=== PATIENT | female | born 1965 | race Caucasian/White ===

== ENCOUNTER 2017-07-31 12:45 | Outpatient (RCR) | payer OTHER, MEDICAID, SELFPAY | END 2017-08-14 23:59 | LOC: NS 12:45 | PROVIDERS: Family Provider Internal Medicine; PCP Internal Medicine; Visit Provider Internal Medicine | DX: E11.9 Type 2 diabetes mellitus without complications (principal); Z68.42 Body mass index [BMI] 45.0-49.9, adult; Z71.3 Dietary counseling and surveillance | CPT/HCPCS: 97802 ==

== ENCOUNTER 2017-08-21 12:48 | Outpatient (RCR) | payer OTHER, MEDICAID, SELFPAY | END 2017-08-21 12:49 | LOC: NS 12:48 | PROVIDERS: Family Provider Internal Medicine; PCP Internal Medicine; Visit Provider Internal Medicine | DX: E11.9 Type 2 diabetes mellitus without complications (principal); E66.9 Obesity, unspecified; Z68.42 Body mass index [BMI] 45.0-49.9, adult; Z71.3 Dietary counseling and surveillance | CPT/HCPCS: 97803 ==

== ENCOUNTER → 2018-01-13 15:44 | Outpatient (CLI) | payer OTHER, MEDICAID, SELFPAY ==
[2018-01-13 17:39] LABS: Erythrocyte Sedimentation Rate 26 mm/hr (0-30)
[2018-01-13 18:25] LABS: HIV - WCH Non-Reactive (Nonreactive); Vitamin B12 1198 pg/mL (211-911)
[2018-01-13 18:54] LABS: Rheumatoid Factor < 10.0 IU/mL (<15); Thyroid Stim Hormone (TSH) 1.43 uIU/mL (0.358-3.74)
[2018-01-15 14:07] LABS: RNP Ab <0.2 AI (0.0-0.9); Smith Ab <0.2 AI (0.0-0.9)
[2018-01-15 16:10] LABS: PROEL- A/G Ratio 1.1 (0.7-1.7); PROEL- Albumin 3.4 g/dL (2.9-4.4); PROEL- Alpha-1 Globulin 0.2 g/dL (0.0-0.4); PROEL- Beta Globulin 1.1 g/dL (0.7-1.3); PROEL- Gamma Globulin 0.8 g/dL (0.4-1.8); PROEL- Globulin, Total 3.2 g/dL (2.2-3.9); PROEL- TOTAL PROTEIN 6.6 g/dL (6.0-8.5)
[2018-01-16 17:05] LABS: ANTINUCLEAR ANTIBODIES DIRECT Negative (Negative)
[2018-01-16 17:09] LABS: Hep C Antibodies 0.1 s/co ratio (0.0-0.9)
== END ==
PROVIDERS: Family Provider Internal Medicine; PCP Internal Medicine; Visit Provider Psychiatry & Neurology Neurology
DX: G62.9 Polyneuropathy, unspecified (principal); R20.2 Paresthesia of skin; R53.83 Other fatigue
CPT/HCPCS: 36415; 82607; 82746; 84165; 84443; 85652; 86038; 86235; 86431; 86703; 86803

== ENCOUNTER → 2018-03-17 10:28 | Outpatient (CLI) | payer OTHER, MEDICAID, SELFPAY ==
[2018-03-17 12:36] LABS: ALB/GLOB Ratio 0.9 RATIO (0.9-2.4); AST(SGOT) 28 U/L (15-37); Alanine Aminotransfer ALT/SGPT 52 U/L (13-56); Albumin, Serum 3.6 g/dL (3.2-5.0); Alkaline Phosphatase 99 U/L (45-117); Anion Gap 9 (5-15); BUN 13 mg/dL (7-18); BUN/Creat Ratio 15.8 RATIO (10-20); Calcium,Total 8.9 mg/dL (8.5-10.1); Chloride 105 mmol/L (98-107); Cholesterol 162 mg/dL (200); Creatinine, Serum 0.82 mg/dL (0.55-1.02); EST Glomerular Filtration Rate 78 mL/min (>60); Est Glom Filt Rate - Afr Amer 94 mL/min (>60); Globulin 4.2 g/dL (2.2-4.2); Glucose 90 mg/dL (74-106); High Density Lipoprotein 39 mg/dL; Potassium 4.2 mmol/L (3.5-5.1); Protein, Total 7.8 g/dL (6.4-8.2); Sodium Level 139 mmol/L (136-145); Triglycerides 180 mg/dL; Very Low Density Lipoprotein 36 mg/dL (5-40)
[2018-03-17 12:42] LABS: Hemoglobin A1c 6.4 % (4.2-6.3)
[2018-03-17 12:45] LABS: Vitamin D,25 Hydroxy 19.6 ng/mL (29.95-100.01)
== END ==
PROVIDERS: Family Provider Family Medicine; PCP Family Medicine; Referring Provider Nurse Practitioner Family; Visit Provider Nurse Practitioner Family
DX: E11.9 Type 2 diabetes mellitus without complications (principal); E55.9 Vitamin D deficiency, unspecified
CPT/HCPCS: 36415; 80053; 80061; 82306; 83036

== ENCOUNTER → 2018-09-11 08:34 | Outpatient (CLI) | payer OTHER, MEDICAID, SELFPAY ==
[2018-09-11 10:03] LABS: ALB/GLOB Ratio 0.8 RATIO (0.9-2.4); AST(SGOT) 38 U/L (15-37); Alanine Aminotransfer ALT/SGPT 52 U/L (13-56); Albumin, Serum 3.3 g/dL (3.2-5.0); Alkaline Phosphatase 100 U/L (45-117); Anion Gap 9 (5-15); BUN 11 mg/dL (7-18); BUN/Creat Ratio 13.4 RATIO (10-20); Calcium,Total 8.6 mg/dL (8.5-10.1); Chloride 110 mmol/L (98-107); Cholesterol 204 mg/dL (200); Creatinine, Serum 0.82 mg/dL (0.55-1.02); EST Glomerular Filtration Rate 78 mL/min (>60); Est Glom Filt Rate - Afr Amer 94 mL/min (>60); Globulin 4.2 g/dL (2.2-4.2); Glucose 135 mg/dL (74-106); High Density Lipoprotein 38 mg/dL; Potassium 4.2 mmol/L (3.5-5.1); Protein, Total 7.5 g/dL (6.4-8.2); Sodium Level 138 mmol/L (136-145); Triglycerides 190 mg/dL; Very Low Density Lipoprotein 38 mg/dL (5-40)
[2018-09-11 10:07] LABS: Vitamin D,25 Hydroxy 31.7 ng/mL (29.95-100.01)
[2018-09-11 10:09] LABS: Hemoglobin A1c 6.8 % (4.2-6.3)
[2018-09-12 05:07] LABS: HEPATITIS B SURFACE AG Negative (Negative); Hepatitis A AB, Total Negative (Negative); Hepatitis A IgM Antibody Negative (Negative); Hepatitis B Core AB IgM Negative (Negative); Hepatitis B Core Ab Total Negative (Negative); Hepatitis C Ab <0.1 s/co ratio (0.0-0.9)
[2018-09-12 14:30] LABS: Hep B Surface Antibodies Reactive (.)
== END ==
PROVIDERS: Family Provider Family Medicine; PCP Family Medicine; Referring Provider Nurse Practitioner Family; Visit Provider Nurse Practitioner Family
DX: E11.9 Type 2 diabetes mellitus without complications (principal); R74.8 Abnormal levels of other serum enzymes; E55.9 Vitamin D deficiency, unspecified
CPT/HCPCS: 36415; 80053; 80061; 82306; 83036; 86704; 86705; 86706; 86708; 86709; 86803; 87340

== ENCOUNTER → 2019-02-26 13:07 | Outpatient (CLI) | payer MEDICAID, SELFPAY ==
[2019-02-26 13:03] VITALS: BMI 48.3
--- NOTE | 2019-02-26 13:11 | RAD_ITS ---
STUDY: X-RAY - PELVIS AND BILATERAL HIPS REASON FOR EXAM: Chronic pain. TECHNIQUE: AP view of the pelvis.? 2 views of the right hip, and 2 views of the left hip were obtained. COMPARISON: None. FINDINGS: There are a few pelvic phleboliths. Normal bilateral iliac wings, sacroiliac joints and visualized sacrum. Normal bilateral superior and inferior pubic rami. There are very mild degenerative changes of the pubic symphysis. Normal bilateral ischial tuberosities. Normal visualized right femoral head. Normal right acetabulum. Normal right hip joint. Normal visualized left femoral head. Normal left acetabulum. Normal left hip joint. RAD/Hips B/L min 2 views w/ Pelvis IMPRESSION: Very mild degenerative changes of the pubic symphysis. Otherwise, unremarkable x-ray examination of the pelvis and bilateral hips. Electronically Signed: Yovany bAdul MD at 13:53 EDT Tel , Service support ,
--- NOTE | 2019-02-26 13:11 | RAD_ITS ---
STUDY: X-RAY - RIGHT KNEE REASON FOR EXAM: Chronic pain. TECHNIQUE: 4 view(s) of the knee. COMPARISON: None. FINDINGS: Normal visualized distal femur. Normal visualized proximal tibia and fibula. Normal proximal tibiofibular articulation. Normal medial femorotibial compartment. Normal lateral femorotibial compartment. Normal patellofemoral articulation. The soft tissue structures are unremarkable. RAD/Knee 4 or More Views IMPRESSION: Normal x-ray examination of the right knee. Electronically Signed: Yovany Abdul MD at 14:21 EDT Tel , Service support ,
--- NOTE | 2019-02-26 13:11 | RAD_ITS ---
STUDY: X-RAY - LEFT KNEE REASON FOR EXAM: Chronic pain. TECHNIQUE: 4 view(s) of the knee. COMPARISON: None. FINDINGS: Normal visualized distal femur. Normal visualized proximal tibia and fibula. Normal proximal tibiofibular articulation. There is mild space narrowing of the medial femorotibial compartment. Normal lateral femorotibial compartment. Normal patellofemoral articulation. The soft tissue structures are unremarkable. RAD/Knee 4 or More Views IMPRESSION: Mild arthrosis of the medial femorotibial compartment. Electronically Signed: Yovany Abdul MD at 14:23 EDT Tel , Service support ,
== END ==
PROVIDERS: Family Provider Family Medicine; PCP Family Medicine; Referring Provider Orthopaedic Surgery; Visit Provider Orthopaedic Surgery
DX: M25.551 Pain in right hip (principal); M25.552 Pain in left hip; M25.561 Pain in right knee; M25.562 Pain in left knee
CPT/HCPCS: 73521; 73564

== ENCOUNTER → 2020-07-12 08:43 | Outpatient (CLI) | payer MEDICAID, SELFPAY ==
[2019-02-26 13:03] VITALS: BMI 48.3
--- NOTE | 2020-07-12 08:46 | VDLE_ITS ---
Reason For Study: varicose veins RIGHT LEFT CFV is compressible, spontaneous, phasic, FV is compressible, spontaneous, phasic, competent and demonstrates normal competent and demonstrates normal augmentation. augmentation. FV is compressible, spontaneous, phasic, POP V is compressible, spontaneous, phasic, competent and demonstrates normal competent and demonstrates normal augmentation. augmentation. T/P Trunk is compressible. T/P Trunk is compressible. PTV is compressible. PTV is compressible. RT PerV is compressible. LT PerV is compressible. Pop V is dilated and noncompressible with CFV is partially compressible with decreased flow. flow. Gastroc V are dilated and noncompressible. GSV is occluded. Extension into the CFV is Varicose veins above and below the knee are noted. dilated and noncompressible. GSV is occluded. Procedure This is a venous duplex using B-mode, color flow and spectral Doppler. Exam performed in department. The exam was diagnostic. A preliminary report was called and/or faxed to Dr. Ragland and Suzan at Dr. Ragland's office. Interpretation Summary Bilateral DVT with some extension into popliteal on the right and into the CFV on the left. Bilateral GSV occluded and varicose veins occluded. Ordering Physician: Kameron Ragland Performed By: Bright Zuniga, RVT
== END ==
PROVIDERS: PCP Family Medicine; Visit Provider Surgery Vascular Surgery
DX: I83.893 Varicose veins of bilateral lower extremities with other complications (principal)
CPT/HCPCS: 93970

== ENCOUNTER → 2020-07-26 08:33 | Outpatient (CLI) | payer MEDICAID, SELFPAY ==
[2019-02-26 13:03] VITALS: BMI 48.3
--- NOTE | 2020-07-26 08:35 | VDLE_ITS ---
Reason For Study: pain and swelling RIGHT LEFT CFV is compressible, spontaneous, phasic, FV is compressible, spontaneous, phasic, competent and demonstrates normal competent and demonstrates normal augmentation. augmentation. FV is compressible, spontaneous, phasic, POP V is compressible, spontaneous, phasic, competent and demonstrates normal competent and demonstrates normal augmentation. augmentation. T/P Trunk is compressible. T/P Trunk is compressible. PTV is compressible. PTV is compressible. RT PerV is compressible. LT PerV is compressible. Pop V is partially compressible with CFV is partially compressible with decreased flow. Mild improvement from previous study flow. done 07/12/20. GSV is occluded. Extension into the CFV is Gastroc V are dilated and noncompressible. noted. Varicose veins above and below the knee are dilated and noncompressible. GSV is occluded. Procedure This is a venous duplex using B-mode, color flow and spectral Doppler. Exam performed in department. The exam was diagnostic. A preliminary report was called and/or faxed to Dr. Mckinney office. Interpretation Summary Right popliteal DVT improved and residual calf DVT. Some extension into CFV on left. Ordering Physician: Kameron Ragland Performed By: Bright Zuniga RVT
== END ==
PROVIDERS: PCP Family Medicine; Referring Provider Surgery Vascular Surgery; Visit Provider Surgery Vascular Surgery
DX: I82.431 Acute embolism and thrombosis of right popliteal vein (principal); I82.4Z1 Acute embolism and thrombosis of unspecified deep veins of right distal lower extremity; I83.893 Varicose veins of bilateral lower extremities with other complications; M79.89 Other specified soft tissue disorders; M79.606 Pain in leg, unspecified; I47.1 Supraventricular tachycardia; F17.200 Nicotine dependence, unspecified, uncomplicated
CPT/HCPCS: 93970

== ENCOUNTER 2021-10-07 23:28 | Emergency (ER) | payer MEDICAID, SELFPAY ==
[2021-10-07 23:29] VITALS: BP 185/95; PULSE 76; RESP 16; TEMP 36.6; O2SAT 97; BMI 47.5
--- NOTE | 2021-10-07 23:56 | EX.ED.DYSGE1 ---
HPI History of Present Illness Chief Complaint: Foreign Body Narrative Narrative: Patient presents with foreign body sensation in her throat/neck. She states she was eating walnuts 24 hours ago and felt to get stuck. However, she was able to continue to eat and drink. She now states that an hour ago she is unable to eat and that her voice is hoarse. She feels that it is stuck. She saw the warehouse lead Dr. Estevez who told her that she needed to do strengthening exercises for her neck muscles because of her difficulty swallowing because she is having throat spasms. She states she is afraid to eat and that when she tilts her head, she can feel it move. She states this is not chest irritation that something actually feels stuck in her throat. PFSH PFS Medical History Depression Diabetes HTN (hypertension) Hyperlipidemia Home Medications ivcdmbmmhlaa-Wu-qvap-minerals 1 ea PO DAILY 03/19/14 [History Last Taken Unknown] cholecalciferol (vitamin D3) 25 mcg (1,000 unit) tablet 1,000 unit PO ONCE 06/05/17 [History Last Taken Unknown] aspirin [Aspir-81] 81 mg PO DAILY 10/07/21 [History Last Taken Unknown] Allergy/AdvReac Type Severity Reaction Status Date / Time empagliflozin Allergy Other Verified 10/07/21 23:57 [From Jardiance] evolocumab Allergy Nausea Verified 10/07/21 23:58 [From Repatha Pushtronex] fluoxetine [From Prozac] Allergy Other Verified 10/07/21 23:58 gabapentin Allergy Other Verified 10/08/21 00:00 hydrochlorothiazide Allergy Nausea Verified 10/08/21 00:00 lisinopril Allergy Other Verified 10/08/21 00:00 losartan Allergy Other Verified 10/08/21 00:01 omeprazole Allergy Other Verified 10/08/21 00:03 pantoprazole Allergy Bleeding Verified 10/08/21 00:03 Bzqxdfu-ONM-NeC Reductase Allergy Other Verified 10/07/21 23:59 Inhibitor Sulfa (Sulfonamide Allergy Other Verified 10/07/21 23:33 Antibiotics) metformin AdvReac Other Verified 10/08/21 00:02 Family History Mother Breast cancer Father Diabetes Heart disease Hypertension CAD (coronary artery disease) Daughter Seizures Kidney disease Thyroid disorder Surgical History H/O colonoscopy History of bilateral oophorectomy History of hysterectomy History of LEEP (loop electrosurgical excision procedure) of cervix complicating Status post panniculectomy surgical history novasure Social History Smoking Status: Current every day smoker tobacco type: cigarettes alcohol intake: never substance use type: does not use ROS ROS ED ROS Narrative Constitutional: No fever, no chills. HEENT: No sore throat. No neck pain. No loss of vision. No rhinorrhea. Foreign body sensation in throat. Cardiovascular: No chest pain. No palpitations. No pedal edema. Respiratory: No cough, no shortness of breath. Abdominal: No abdominal pain. No nausea. No vomiting. Genitourinary: No dysuria. No hematuria. Musculoskeletal: No myalgias. No arthralgias. Neurologic: No headaches. No dizziness. No lightheadedness. Skin: No rash. No change in color. Psychiatric: No depression. No anxiety. EXAM Physical Exam Narrative Exam Narrative: Afebrile. Vital signs noted. HEENT: Normocephalic. Atraumatic. PERRL, EOMI. Neck soft and supple. No point tenderness or step off. Airway patent. Hoarse voice. No drooling or trismus. Handling secretions well. Cardiovascular: Regular rate and rhythm. No murmurs, rubs, or gallops appreciated. Respiratory: No tachypnea. Lungs clear to auscultation bilaterally. Gastrointestinal: Abdomen soft, nontender, with normoactive bowel sounds. No rebound or guarding. Neurological: Awake. Alert. Nonfocal, nonlateralizing. Skin: No rash. Normal color. No pallor. Musculoskeletal: No pedal edema. Full range of motion extremities. Const Vital Signs: 10/07/21 23:29 10/07/21 23:53 10/08/21 01:29 Temperature 97.8 F Temperature Source Temporal Pulse Rate 76 Respiratory Rate 16 18 Respiratory Effort Normal Respiratory Pattern Normal Blood Pressure 185/95 H Blood Pressure Mean 125 Pulse Ox 97 Oxygen Delivery Method Room Air Room Air 10/08/21 02:52 Temperature Temperature Source Pulse Rate 80 Respiratory Rate 17 Respiratory Effort Respiratory Pattern Blood Pressure 168/88 H Blood Pressure Mean Pulse Ox 98 Oxygen Delivery Method MDM MDM MDM Narrative Medical decision making narrative: Pulse ox is 97% on room air. I will obtain CBC and BMP. She was bolused normal saline. CT of the neck will be obtained to look for foreign body. Her CBC shows normal white count of 9.6. Hemoglobin normal at 14.7. Platelet count of 199 and normal. Electrolyte panel is grossly unremarkable. CT of the soft tissue neck with IV contrast shows no acute findings. There is an incidental 1.1 cm thyroid nodule. She was told that she has a thyroid nodule and that she should get an ultrasound by her primary care physician as an outpatient on a nonemergent basis. Patient continued to state that she felt a foreign body sensation in her throat. I attempted multiple times to reassure her that there was no evidence of a foreign body or obstruction. Her voice was not as hoarse intermittently and had returned to normal. She will be given a GI cocktail. She states that she had 1 of those yesterday and that her ENT doctor thought it was more dysphagia that she needed massotherapy. She states that she is trying to get outpatient MRIs. Once again, she is handling her secretions well and there is no evidence of drooling or trismus. She became very anxious and shaky. I was going to give her Vistaril, but she states that she has that at home she was told not to take that because it dries out her throat. She will be given Ativan 1 mg intravenously. At this point in time, with no evidence of obstruction or any acute process, no obstructing foreign body in her throat, I feel she can be discharged safely home with follow-up. Return instructions to the emergency department were reviewed. Disposition is discharged home in stable condition. Lab Data Attestation: I reviewed the patient's lab results. Labs: Laboratory Results - last 24 hr 10/08/21 10/08/21 00:16 00:16 WBC 9.6 RBC 4.92 Hgb 14.7 Hct 43.9 MCV 89.2 MCH 29.9 MCHC 33.5 RDW Std Deviation 40.8 RDW Coeff of Janes 12.4 Plt Count 199 MPV 12.3 H Immature Gran % (Auto) 0.300 Neut % (Auto) 52.8 Lymph % (Auto) 36.7 [place] % (Auto) 7.2 Eos % (Auto) 2.5 Baso % (Auto) 0.5 Absolute Neuts (auto) 5.1 Absolute Lymphs (auto) 3.51 Nucleated RBC % 0 Sodium 139 Potassium 3.7 Chloride 106 Carbon Dioxide 25.0 Anion Gap 8 BUN 11 Creatinine 0.92 Estim Creat Clear Calc 62.90 Est GFR (MDRD) Af Amer 82 Est GFR (MDRD) Non-Af 67 BUN/Creatinine Ratio 11.9 Glucose 103 Calcium 9.2 Radiography Diagnostic Testing: Clinical Impression(s) from Imaging Studies Soft Tissue Neck CT 10/08/21 00:00 IMPRESSION: No acute findings. Left internal carotid artery tortuous retropharyngeal course. Incidental 1.1 cm thyroid nodule, follow-up nonemergent ultrasound recommended. Electronically Signed: Astrid Padilla MD at 1:40 EDT Reading Location ID and State: [facility] / [place] Tel , Service support , Discharge Plan Triage Chief Complaint: Foreign Body ED Provider: Chano Peters Dx/Rx/DC Orders Clinical Impression: Foreign body sensation in throat, Anxiety, Dysphagia, Thyroid nodule Instructions: Dysphagia: Exercises, ED Symptoms With Uncertain Cause, ED Dysphagia (Adult) Prescriptions: No Action cholecalciferol (vitamin D3) 1,000 unit tablet 1,000 unit PO ONCE RF: 0 xoterrsjqmgr-Fn-juvz-minerals 1 EACH tablet 1 ea PO DAILY RF: 0 aspirin [Aspir-81] 81 mg Tablet,Delayed Release (Dr/Ec) 81 mg PO DAILY RF: 0 Primary Care Provider: Dallas Hunter Referrals: Dallas Hunter MD [Primary Care Provider] - 2 Days Activity Restrictions/Additional Instructions: You had a CT scan of your throat today which did not show any evidence of obstruction or foreign body. It did show that you have a thyroid nodule. This can be followed up as an outpatient with an ultrasound. Follow-up with your ENT doctor and your leadership intern as soon as possible. Disposition Disposition: Home, Self Care Discharge Date/Time: 10/08/21 02:52
--- NOTE | 2021-10-08 | CT_ITS ---
STUDY: CT SOFT TISSUE NECK WITH CONTRAST REASON FOR EXAM: Female, 56 years old. Foreign Body Sensation RADIATION DOSAGE (If Supplied By Facility): CTDIvol = ( 19.79 ) mGy, DLP = ( 654.51 ) mGycm TECHNIQUE: The patient was scanned in a multi-detector CT scanner. High resolution transaxial imaging was performed following intravenous administration of IV 75mL Isovue-300. Sagittal and coronal images were reconstructed. Individualized dose optimization techniques were used for this CT. COMPARISON: None. FINDINGS: The parapharyngeal and retropharyngeal spaces are unremarkable. The epiglottis is normal. The internal carotid arteries are tortuous, the left ICA courses into the retropharyngeal space. The airway is maintained. No collection or abscess. 1.1 cm low-attenuation nodule in the left lobe of the thyroid gland. Mucosal thickening in the left maxillary sinus. A few prominent lymph nodes in the soft tissues. Degenerative changes in cervical spine. CT/Soft Tissue Neck WITH Contrast IMPRESSION: No acute findings. Left internal carotid artery tortuous retropharyngeal course. Incidental 1.1 cm thyroid nodule, follow-up nonemergent ultrasound recommended. Electronically Signed: Astrid Padilla MD at 1:40 EDT ,
[2021-10-08] MEDS: 0.9% Normal Saline 1,000 ML 999 ML IV (00:18)
[2021-10-08 00:33] LABS: Absolute Lymphocyte Count 3.51 X10^3/uL (0.83-4.51); Absolute Neutrophil Count 5.1 X10^3/uL (2.0-7.7); Basophil# 0.05 X10^3/uL; Basophil% 0.5 % (0-1); Eosinophil# 0.24 X10^3/uL; Eosinophils% 2.5 % (0-5); Hematocrit 43.9 % (37-47); Hemoglobin 14.7 g/dL (12.0-15.0); Lymphocyte # 3.51 X10^3/ul (0.83-4.51); Lymphocyte % 36.7 % (19-41); Mean Corp Hgb Conc 33.5 g/dL (32-36); Mean Corpuscular Hgb 29.9 pg (27.0-32.0); Mean Corpuscular Volume 89.2 fL (81-99); Mean Platelet Vol. 12.3 fl (6.2-12.0); Monocyte# 0.69 X10^3/uL; Monocyte% 7.2 % (0-10); NRBC Flagged by Analyzer 0 % (0-5); Neutrophil # 5.05 X10^3/uL (2.7-7.7); Neutrophil % 52.8 % (47-70); Platelet Count 199 K/mm3 (150-450); RBC Distribution Width CV 12.4 % (11.6-14.6); RBC Distribution Width SD 40.8 fl (35.1-43.9); Red Blood Count 4.92 M/mm3 (4.2-5.4); White Blood Count 9.6 K/mm3 (4.4-11.0)
[2021-10-08 00:49] LABS: Anion Gap 8 (5-15); BUN 11 mg/dL (7-18); BUN/Creat Ratio 11.9 RATIO (10-20); Calcium,Total 9.2 mg/dL (8.5-10.1); Chloride 106 mmol/L (98-107); Creatinine, Serum 0.92 mg/dL (0.55-1.02); EST Glomerular Filtration Rate 67 mL/min (>60); Est Glom Filt Rate - Afr Amer 82 mL/min (>60); Glucose 103 mg/dL (74-106); Potassium 3.7 mmol/L (3.5-5.1); Sodium Level 139 mmol/L (136-145)
[2021-10-08 01:29] VITALS: RESP 18
[2021-10-08] MEDS: Mag Hydrox/Al Hydrox/Simeth 30 ML UDC PO (02:43)
[2021-10-08] MEDS: LORazepam 2 MG/ML Syringe 1 MG IV (02:43)
[2021-10-08 02:52] VITALS: BP 168/88; PULSE 80; RESP 17; O2SAT 98
== END 2021-10-08 02:52 | disposition home or self-care (01) ==
PROVIDERS: Emergency Provider Emergency Medicine; PCP Family Medicine; Visit Provider Emergency Medicine
DX: R09.89 Other specified symptoms and signs involving the circulatory and respiratory systems (principal); F41.9 Anxiety disorder, unspecified; R13.10 Dysphagia, unspecified; E04.1 Nontoxic single thyroid nodule; E11.9 Type 2 diabetes mellitus without complications; I10 Essential (primary) hypertension; E78.5 Hyperlipidemia, unspecified; Z79.82 Long term (current) use of aspirin
CPT/HCPCS: 70491; 80048; 85025; 96361; 96374; 99284; J7030; Q9967; A4216

== ENCOUNTER 2021-10-20 12:54 | Day surgery (SDC) | payer MEDICAID, SELFPAY ==
[2021-10-20] VITALS (7 sets, daily range): BP systolic 112–143; BP diastolic 60–110; PULSE 49–77; RESP 16–18; TEMP 36.1–36.2; O2SAT 96–100; BMI 45.5
--- NOTE | 2021-10-20 | IMM_PTH ---
PATIENT: MAGED LEE LOC: [facility] [place] U#:[id number] AGE/SX: 56/F ROOM: RE10/20/[address]: Dr. Dick Boyle DO : 1965 BED: DIS: 10/20/2021 SPEC #: [id number] RECD: 10/24/21 10:32 STATUS: YAW REHernandez #: [id number] CHARLES: 10/20/21 00:[address]: Dick Boyle DEPT: IMMUNOHISTOCHEMISTRY RECD BY: Kenya Hart ENTERED: 10/24/21 10:33 SP TYPE: IMMUNO OTHR DR: Nela Flor, TACTICAL DECEPTION PLANS OFFICER-C Tissues: Esophagus, NOS Procedures: P53 (initial) KI-67 (add) PHYSICIAN & [place] [id number] SPECIMEN INFORMATION: Tissue Source: Distal esophagus Clinical Info: Dysphagia Specimen Number: [id number] CPT code: 39876, 68010 METHODOLOGY: Deparaffinized sections of prefer/formalin-fixed tissue or PAP/DQ stained slides are incubated with monoclonal/polyclonal antibodies/oligonucleotide probes. Localization is made via biotin free immunoperoxidase method. Appropriate controls are performed and reacted as expected. Results on target cell population are indicated in the following table: RESULTS: ANTIBODY / CLONE RESULT P53 (DO-7) negative Ki-67 (30-9) positive, very low These tests were developed and their performance characteristics determined by [facility]. They may not have been cleared or approved by the U.S. Food and Drug Administration. The FDA has determined that such clearance or approval is not necessary. The above immunohistochemical/dualISH markers are ordered and reviewed by the Pathologist. INTERPRETATION: Distal esophagus, biopsy: Negative for dysplasia. JEWEL:nelia 10/25/2021
--- NOTE | 2021-10-20 13:35 | CT_ITS ---
STUDY: CT SOFT TISSUE NECK WITH CONTRAST REASON FOR EXAM: Female, 56 years old. Dysphagia. Thyroid nodules. RADIATION DOSAGE (If Supplied By Facility): CTDIvol = ( 19.08 ) mGy, DLP = ( 614.99 ) mGycm TECHNIQUE: The patient was scanned in a multi-detector CT scanner. High resolution transaxial imaging was performed following intravenous administration of IV 75mL Isovue-300. Sagittal and coronal images were reconstructed. Individualized dose optimization techniques were used for this CT. COMPARISON: Comparison is made with prior examination dated 10/08/2021. FINDINGS: Normal bilateral parotid glands. Normal bilateral chemical sales representative spaces. Normal bilateral parapharyngeal spaces. Normal bilateral carotid spaces. Normal bilateral sublingual and submandibular glands and spaces. Normal visualized nasopharynx. Normal retropharyngeal space. Normal perivertebral space. Normal visualized bilateral faucial tonsils. The visualized tongue, tongue base and oropharynx are normal. There are minimally enlarged lymph nodes of the neck, with preservation of normal tanvir architecture, consistent with a reactive lymph hyperplasia. There is no demonstrated solid or cystic mass lesion. There is no abnormal contrast enhancement. Normal epiglottis, bilateral vallecula and hypopharynx. The pre-epiglottic and paraglottic adipose spaces are normal. Normal visualized bilateral piriform sinuses, aryepiglottic folds, vocal cords, and arytenoid-cricoid articulations. Normal subglottic trachea. Stable 1.1 cm hypodense nodule in the left lobe of the thyroid. Normal visualized pulmonary apices. Partial opacification of the inferior aspect of the left maxillary sinus. Normal visualized cervical spine. CT/Soft Tissue Neck WITH Contrast IMPRESSION: Stable 1.1 cm hypodense nodule in the left lobe of the thyroid. Partial opacification along the inferior aspect of the left maxillary sinus. Electronically Signed: Jamal Uribe MD at 15:05 EDT ,
--- NOTE | 2021-10-20 13:37 | EDS_ITS ---
HPI History of Present Illness Chief Complaint: Other, Pain/Inj Detail of Chief Complaint: dysphagia Informant: patient Onset/Context/Timing Onset: Weeks (several) Context: Gradual Onset Timing: Continuous Quality: can't swallow; feels swollen Location: throat Current Severity: Severe Maximum Severity: Severe Worsened by: Trying to swallow Relieved by: Nothing Associated Symptoms Associated Symptoms: Choking when trying to swallow even liquids now Narrative Narrative: Patient states she has been having progressively worsening dysphagia since a herniorrhaphy surgery about 3 weeks ago. She saw ENT, she had a nasopharyngeal scope in the office that was unremarkable according to the patient, she states she choked on a walnut during all of this and within was seen in several other emergency departments including this 1, she had a CT scan showing no foreign material or anything obvious except for a nodule in her thyroid that was only 1.1 cm, she followed up and had an ultrasound of this showing it to be 1.2 cm in the longest direction, ovoid in nature, but a little higher than this she feels like her throat is swollen and as of today she is unable to even swallow liquids as a result of this without choking significantly and she is afraid of aspirating. She does not feel she has aspirated at this time, when she is not drinking any fluids, she is not choking, short of breath, or coughing. She does not have odynophagia. [facility] Medical History Depression Diabetes HTN (hypertension) Hyperlipidemia Home Medications epurcndyfqls-Sl-bpth-minerals 1 ea PO DAILY 03/19/14 [History Last Taken Unknown] cholecalciferol (vitamin D3) 25 mcg (1,000 unit) tablet 1,000 unit PO ONCE 06/05/17 [History Last Taken Unknown] aspirin [Aspir-81] 81 mg PO DAILY 10/07/21 [History Last Taken Unknown] Allergy/AdvReac Type Severity Reaction Status Date / Time empagliflozin Allergy Other Verified 10/20/21 12:58 [From Jardiance] evolocumab Allergy Nausea Verified 10/20/21 12:58 [From Repatha Pushtronex] fluoxetine [From Prozac] Allergy Other Verified 10/20/21 12:58 gabapentin Allergy Other Verified 10/20/21 12:58 hydrochlorothiazide Allergy Nausea Verified 10/20/21 12:58 lisinopril Allergy Other Verified 10/20/21 12:58 losartan Allergy Other Verified 10/20/21 12:58 omeprazole Allergy Other Verified 10/20/21 12:58 pantoprazole Allergy Bleeding Verified 10/20/21 12:58 Lxizzwp-YIW-OsX Reductase Allergy Other Verified 10/20/21 12:58 Inhibitor Sulfa (Sulfonamide Allergy Other Verified 10/20/21 12:58 Antibiotics) metformin AdvReac Other Verified 10/20/21 12:58 Family History Mother Breast cancer Father Diabetes Heart disease Hypertension CAD (coronary artery disease) Daughter Seizures Kidney disease Thyroid disorder Surgical History H/O colonoscopy History of bilateral oophorectomy History of hysterectomy History of LEEP (loop electrosurgical excision procedure) of cervix complicating Status post panniculectomy surgical history novasure Social History Smoking Status: Current every day smoker tobacco type: e-cigarettes alcohol intake: never substance use type: does not use ROS ROS ED Constitutional Constitutional ED: Denies chills or fever(s) Eyes Eyes: Denies change in vision or diplopia ENT ENT ED: Reports as per HPI and dysphagia; Denies hoarseness, rhinorrhea or sore throat Cardiovascular Cardiovascular: Denies chest pain or palpitations Respiratory/Chest Respiratory/Chest: Denies cough or dyspnea Gastrointestinal Gastrointestinal: Denies abdominal pain, diarrhea, nausea or vomiting Genitourinary Genitourinary ED: Denies dysuria or hematuria Musculoskeletal Musculoskeletal: Denies back pain or neck pain Integumentary Denies abscess or rash Neurologic Neurologic: Denies headache(s), paresthesias or weakness Psychiatric Psychiatric: Denies anxiety or suicidal thoughts EXAM Physical Exam Const Vital Signs: 10/20/21 12:55 10/20/21 13:39 10/20/21 16:09 Temperature 97 F L Temperature Source Temporal Pulse Rate 77 53 L Respiratory Rate 18 16 Respiratory Effort Normal Non-Labored Blood Pressure 143/97 H 140/74 H Blood Pressure Mean 112 96 Pulse Ox 98 98 Oxygen Delivery Method Room Air Room Air Positive well nourished, well developed and obese General Appearance ED: well developed and NAD Nutritional Appearance: obese HEENT Reports moist mucous membranes HEENT Narrative: Speaking normally. Posterior oropharynx clear, no trismus. No sublingual edema, no submental tenderness or edema. No stridor. normocephalic and atraumatic Eyes PERRL and EOMs intact bilaterally Neck full ROM, no lymphadenopathy, supple and no meningeal signs Resp normal respiratory effort and clear to auscultation bilaterally Cardio regular rate, regular rhythm and no murmurs GI non-tender and non-distended Auscultation: normoactive bowel sounds Palpation: soft Back/Spine no CVA tenderness General Back: other FROM Extremity normal to inspection General Extremety ED: Negative for edema, pulses abnormal or tenderness General Extremity: Negative for edema or pulses abnormal Neuro oriented x3, CN's II-XII intact bilaterally and no sensory deficits noted Sensorium / Orientation: awake and alert Motor Exam: strength 5/5 throughout Skin no rashes or lesions noted and no wounds MDM MDM MDM Narrative Medical decision making narrative: I repeated the patient's CT of the neck, it shows no changes. Furthermore, it shows no hypopharyngeal abnormality. Patient had scope by Dr. Orlando that did not show anything according to what the patient is saying, so I do not think this is necessarily going to be diagnosed by an laborer car barn, more likely GI may be this is proximal esophageal. I discussed with Dr. Boyle, he thought that an esophagram would be reasonable first, especially since he has clinic for the next couple hours would not be able to scope her right away. I called radiology but the radiologist is already gone for the day, so we will not be able to obtain a stat esophagram. Therefore Dr. Boyle will try to scope her here later with endoscopy, and we will monitor her in the emergency department until then. Will order maintenance IV fluids and n.p.o. status for now. Lab Data Attestation: I reviewed the patient's lab results. Labs: Laboratory Results - last 24 hr 10/20/21 10/20/21 14:00 14:00 WBC 7.4 RBC 5.39 Hgb 16.1 H Hct 48.9 H MCV 90.7 MCH 29.9 MCHC 32.9 RDW Std Deviation 41.2 RDW Coeff of Janes 12.5 Plt Count 210 MPV 12.9 H Immature Gran % (Auto) 0.300 Neut % (Auto) 55.6 Lymph % (Auto) 34.2 [place] % (Auto) 7.1 Eos % (Auto) 2.3 Baso % (Auto) 0.5 Absolute Neuts (auto) 4.1 Absolute Lymphs (auto) 2.52 Nucleated RBC % 0 Sodium 140 Potassium 3.5 Chloride 109 H Carbon Dioxide 27.0 Anion Gap 4 L BUN 9 Creatinine 0.76 Estim Creat Clear Calc 76.15 Est GFR (MDRD) Af Amer 101 Est GFR (MDRD) Non-Af 84 BUN/Creatinine Ratio 11.8 Glucose 88 Calcium 8.6 TSH 0.72 Radiography Diagnostic Testing: Clinical Impression(s) from Imaging Studies Soft Tissue Neck CT 10/20/21 13:35 IMPRESSION: Stable 1.1 cm hypodense nodule in the left lobe of the thyroid. Partial opacification along the inferior aspect of the left maxillary sinus. Electronically Signed: Jamal Uribe MD at 15:05 EDT , Discharge Plan Triage Chief Complaint: Other, Pain/Inj ED Provider: Caleb Apple Dx/Rx/DC Orders Clinical Impression: Dysphagia Prescriptions: No Action cholecalciferol (vitamin D3) 1,000 unit tablet 1,000 unit PO ONCE RF: 0 opmwxudaijbz-Ov-mcda-minerals 1 EACH tablet 1 ea PO DAILY RF: 0 aspirin [Aspir-81] 81 mg Tablet,Delayed Release (Dr/Ec) 81 mg PO DAILY RF: 0 Primary Care Provider: Nela Flor NP Referrals: Nela Flor NP, TECHNICAL APPLICATIONS SCIENTIST-C [Primary Care Provider] - Disposition Disposition: Acute Care Hospital [facility]
[2021-10-20] MEDS: 0.9% Normal Saline 1,000 ML 999 ML IV (14:00)
[2021-10-20 14:06] LABS: Absolute Lymphocyte Count 2.52 X10^3/uL (0.83-4.51); Absolute Neutrophil Count 4.1 X10^3/uL (2.0-7.7); Basophil# 0.04 X10^3/uL; Basophil% 0.5 % (0-1); Eosinophil# 0.17 X10^3/uL; Eosinophils% 2.3 % (0-5); Hematocrit 48.9 % (37-47); Hemoglobin 16.1 g/dL (12.0-15.0); Lymphocyte # 2.52 X10^3/ul (0.83-4.51); Lymphocyte % 34.2 % (19-41); Mean Corp Hgb Conc 32.9 g/dL (32-36); Mean Corpuscular Hgb 29.9 pg (27.0-32.0); Mean Corpuscular Volume 90.7 fL (81-99); Mean Platelet Vol. 12.9 fl (6.2-12.0); Monocyte# 0.52 X10^3/uL; Monocyte% 7.1 % (0-10); NRBC Flagged by Analyzer 0 % (0-5); Neutrophil # 4.09 X10^3/uL (2.7-7.7); Neutrophil % 55.6 % (47-70); Platelet Count 210 K/mm3 (150-450); RBC Distribution Width CV 12.5 % (11.6-14.6); RBC Distribution Width SD 41.2 fl (35.1-43.9); Red Blood Count 5.39 M/mm3 (4.2-5.4); White Blood Count 7.4 K/mm3 (4.4-11.0)
[2021-10-20 14:28] LABS: Anion Gap 4 (5-15); BUN 9 mg/dL (7-18); BUN/Creat Ratio 11.8 RATIO (10-20); Calcium,Total 8.6 mg/dL (8.5-10.1); Chloride 109 mmol/L (98-107); Creatinine, Serum 0.76 mg/dL (0.55-1.02); EST Glomerular Filtration Rate 84 mL/min (>60); Est Glom Filt Rate - Afr Amer 101 mL/min (>60); Estimated Creatinine Clearance 76.15 ml/min; Glucose 88 mg/dL (74-106); Potassium 3.5 mmol/L (3.5-5.1); Sodium Level 140 mmol/L (136-145); Thyroid Stim Hormone (TSH) 0.72 uIU/mL (0.358-3.74)
--- NOTE | 2021-10-20 17:05 | EGD_PTH ---
PATIENT: MAGED [place]EE [place] [facility] [id number] AGE/SX: 56/F ROOM: RE10/20/[address]: Dr. Dick Boyle DO : 1965 BED: DIS: 10/20/2021 SPEC #: [id number] RECD: 10/20/21 17:42 STATUS: YAW REHernandez #: [id number] CHARLES: 10/20/21 17:[address]: Dick Boyle DEPT: SURGICAL PATHOLOGY RECD BY: Demetria Rojo ENTERED: 10/23/21 08:05 SP TYPE: EGD BIOPSY OT DR: Nela Flor, ZOOKEEPER-C Tissues: Esophagus, NOS Procedures: Special Stain Group II Surgery Specimen Level IV Alcian Blue/PAS (control) HEADER OPERATION: [place] [place] with biopsies and dilation PRE-OP DIAGNOSIS: Dysphagia TISSUE SUBMITTED: Distal esophagus biopsy MICROSCOPIC DIAGNOSIS Distal esophagus, biopsy: Fragments of gastroesophageal mucosa with focal intestinal metaplasia (goblet cell metaplasia), 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 Mild chronic inflammation. Negative for dysplasia. See comment. JEWEL:nelia 10/24/2021 COMMENT The specimen predominantly consists of gastric mucosa. Alcian blue/PAS stain with matched control is used in the evaluation of the specimen. Immunohistochemistry ([id number]) for P53 and Ki-67 will be performed and results will be reported separately. MICROSCOPIC DESCRIPTION Slides are reviewed. GROSS DESCRIPTION Received in fixative is one container labeled with the patient's name and designated distal esophagus biopsy. The specimen consists of multiple irregular fragments of light reina soft tissue that in aggregate measure 1 x 0.3 x 0.1 cm. The specimen is totally submitted in one cassette. / JEWEL:nelia 10/23/2021 TC:5 CPT: 93204, 83132
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
--- NOTE | 2021-10-20 17:41 | OP.CCLET_ITS ---
03/16/2022 Nela Flor Re : Upper GI endoscopy procedure for Ashley Rodriguezr Basia This procedure was performed on Wednesday, October 20, 2021. My impressions and recommendations are as follows: Impressions : - LA Grade A reflux esophagitis. Biopsied. - Mild Schatzki ring. Dilated. - Normal stomach. - No gross lesions in the second portion of the duodenum. Recommendations : - Discharge patient to home. - Advance diet as tolerated. - Continue present medications. - Await pathology results. My findings are described in the full procedure note, which is enclosed. If I can be of further assistance, please feel free to contact me at . Sincerely, Dick Boyle, 10/20/2021 5:40:24 PM This report has been signed electronically.
--- NOTE | 2021-10-20 17:41 | OP.EGD_ITS ---
Patient Name: Ashley Ocasio Procedure Date: 10/20/2021 4:39 PM Date of : 1965 Age: 56 Procedure: Upper GI endoscopy Indications: Dysphagia Providers: Dick Boyle DO Medicines: Monitored Anesthesia Care Patient Profile: This is a 56 year old female. Refer to note in patient chart for documentation of history and physical. Patient has symptoms of acute dysphagia. Complications: No immediate complications. Procedure: Pre-Anesthesia Assessment: - Prior to the procedure, a History and Physical was performed, and patient medications and allergies were reviewed. The risks and benefits of the procedure and the sedation options and risks were discussed with the patient. All questions were answered and informed consent was obtained. Patient identification and proposed procedure were verified by the physician in the pre-procedure area. Mental Status Examination: alert and oriented. Airway Examination: normal oropharyngeal airway and neck mobility. Respiratory Examination: clear to auscultation. CV Examination: normal. Prophylactic Antibiotics: The patient does not require prophylactic antibiotics. Prior Anticoagulants: The patient has taken no previous anticoagulant or antiplatelet agents. After reviewing the risks and benefits, the patient was deemed in satisfactory condition to undergo the procedure. The anesthesia plan was to use moderate sedation / analgesia (conscious sedation). Immediately prior to administration of medications, the patient was re-assessed for adequacy to receive sedatives. The heart rate, respiratory rate, oxygen saturations, blood pressure, adequacy of pulmonary ventilation, and response to care were monitored throughout the procedure. The physical status of the patient was re-assessed after the procedure. After obtaining informed consent, the endoscope was passed under direct vision. Throughout the procedure, the patient's blood pressure, pulse, and oxygen saturations were monitored continuously. The gastroscope was introduced through the mouth, and advanced to the second part of duodenum. The upper GI endoscopy was accomplished without difficulty. The patient tolerated the procedure well. Scope In: 5:22:51 PM Scope Out: 5:29:06 PM Total Procedure Duration Time 0 hours 6 minutes 15 seconds Findings: LA Grade A (one or more mucosal breaks less than 5 mm, not extending between tops of 2 mucosal folds) esophagitis with no bleeding was found 38 to 40 cm from the incisors. Biopsies were taken with a cold forceps for histology. Verification of patient identification for the specimen was done. Estimated blood loss was minimal. A mild Schatzki ring was found in the lower third of the esophagus. A guidewire was placed and the scope was withdrawn. Dilation was performed with a Savary dilator with no resistance at 54 Fr. The dilation site was examined and showed mild improvement in luminal narrowing. Estimated blood loss was minimal. The entire examined stomach was normal. No gross lesions were noted in the second portion of the duodenum. Impression: - LA Grade A reflux esophagitis. Biopsied. - Mild Schatzki ring. Dilated. - Normal stomach. - No gross lesions in the second portion of the duodenum. Recommendation: - Discharge patient to home. - Advance diet as tolerated. - Continue present medications. - Await pathology results. Procedure Code(s): --- Professional --- 00900, Esophagogastroduodenoscopy, flexible, transoral; with insertion of guide wire followed by passage of dilator(s) through esophagus over guide wire 78938, 59, Esophagogastroduodenoscopy, flexible, transoral; with biopsy, single or multiple CPT copyright 2017 [employer]. All rights reserved. The codes documented in this report are preliminary and upon pre coder review may be revised to meet current compliance requirements. Dick Boyle DO 10/20/2021 5:40:24 PM This report has been signed electronically. Number of Addenda: 1 Note Initiated On: 10/20/2021 4:39 PM Addendum Number: 1 Addendum Date: 03/16/2022 6:29:10 AM MAC was used as sedation for this procedure. Dick Boyle DO 03/16/2022 6:29:14 AM This report has been signed electronically.
== END 2021-10-20 18:03 | disposition home or self-care (01) ==
LOC: ED 16:29 → SDC 16:30 → ACINP 16:30
PROVIDERS: Emergency Provider Emergency Medicine; PCP Nurse Practitioner Family; Visit Provider Internal Medicine Gastroenterology
PROC: 0DJ08ZZ Inspection of Upper Intestinal Tract, Via Natural or Artificial Opening Endoscopic (ICD-10-PCS; CPT 43235; principal; 2021-10-20 17:00)
DX: K22.2 Esophageal obstruction (principal); E11.9 Type 2 diabetes mellitus without complications; K21.00 Gastro-esophageal reflux disease with esophagitis, without bleeding; I10 Essential (primary) hypertension; E78.5 Hyperlipidemia, unspecified; F32.A Depression, unspecified; E66.9 Obesity, unspecified; F17.290 Nicotine dependence, other tobacco product, uncomplicated; Z79.82 Long term (current) use of aspirin; Z79.899 Other long term (current) drug therapy
CPT/HCPCS: 43248; 43239; 70491; 80048; 84443; 85025; 88305; 88313; 88341; 88342; 99284; J7030; Q9967; A4216; C1769; J2405

== ENCOUNTER 2021-10-26 08:55 | Day surgery (SDC) | payer MEDICAID, SELFPAY ==
[2021-10-26] MEDS: Lidocaine Jelly 2% 20 ML Syringe (URO-JET) 1 APPLIC (09:15)
[2021-10-26 09:32] VITALS: BP 158/99; PULSE 56; RESP 17; TEMP 36.4; O2SAT 98
== END 2021-10-26 23:59 | disposition home or self-care (01) ==
LOC: EN 08:55
PROVIDERS: PCP Nurse Practitioner Family; Referring Provider Internal Medicine Gastroenterology; Visit Provider Internal Medicine Gastroenterology
PROC: F00ZJWZ Instrumental Swallowing and Oral Function Assessment using Swallowing Equipment (ICD-10-PCS; CPT 43235; principal; 2021-10-26 09:25)
DX: K22.4 Dyskinesia of esophagus (principal)
CPT/HCPCS: 91010